=== PATIENT | male | born 1990 | race Hispanic/Latino ===

== ENCOUNTER 2024-08-22 17:44 | Outpatient (CLI) | payer OTHER ==
[~2024-08-22 17:44] MED LIST: Iopamidol-370 76% 500 ML MDV (1 ML CHARGE) ONE
== END 2024-08-22 17:45 | disposition home or self-care (01) ==
LOC: CT 17:44
DX: R31.9 Hematuria, unspecified (principal)
CPT/HCPCS: 74178; Q9967